=== PATIENT | male | born 1960 | race Caucasian/White ===

== ENCOUNTER 2020-09-09 09:45 | Day surgery (SDC) | payer MEDICARE, SELFPAY ==
--- NOTE | 2020-09-09 | PATH_ITS ---
[facility] Accession Number: [id number] . 01 Material submitted: . PART A: colon - ASCENDING COLON POLYP NEAR CECUM PART B: colon - COLON POLYP @60CM PART C: colon - COLON POLYP @40CM PART D: rectum - RECTAL POLYP X3 . 02 Diagnosis: A. Ascending Colon Polyp Near Cecum: Tubular adenoma. . B. Colon Polyp at 60 cm: Tubular adenoma. . C. Colon Polyp at 40 cm: Portions of hyperplastic polyp x3. . D. Rectal Polyp x3: Portions of hyperplastic polyp x5. [facility] 09/14/2020 1327 Local . 02 Electronically signed: . Jane Carroll MD, Pathologist NPI- [id number] . 01 Gross description: . A. The specimen is received in formalin, labeled ascending colon polyp near cecum, and consists of a 0.7 x 0.6 x 0.2 cm, jacobson-pink polyp. The margin is inked blue. The specimen is bisected and entirely submitted in cassette A1. B. The specimen is received in formalin, labeled colon polyp at 60 cm, and consists of a 0.3 x 0.2 x 0.2 cm, jacobson fragment of soft tissue which is entirely submitted in cassette B1. C. The specimen is received in formalin, labeled colon polyp at 40 cm, and consists of three jacobson-pink fragments of soft tissue measuring 0.8 x 0.7 x 0.3 cm in aggregate. The specimen is entirely submitted in cassette C1. D. The specimen is received in formalin, labeled rectal polyp, and consists of multiple jacobson-pink fragments of soft tissue measuring 1.2 x 1.0 x 0.3 cm in aggregate. The specimen is entirely submitted in cassette D1. ([id number]) /FRR 09/10/2020 1705 [facility] . 02 Pathologist provided ICD-10: K62.5, K64.9, K63.5 . 02 CPT . 275571, 583001, 600314, [id number] Performed at: 01 [facility] [address] [id number] MD Ortiz Beltran MD Phone: [phone] Performed at: 02 [facility] [address] [place] [id number] MD Ashlie Black MD Phone: [phone]
[2020-09-09 10:23] VITALS: BP 148/73; PULSE 84; RESP 16; TEMP 36.6; O2SAT 98; BMI 17.6
[2020-09-09] MEDS: LACTATED RINGERS 1,000 ML 150 ML IV (10:47)
--- NOTE | 2020-09-09 11:23 | PM.PREOP ---
Pre-operative Note COVID-19 COVID-19 status: Negative Result date/Date tested (Pos, Neg/Pending): 09/08/20 Interval Note History & Physical reviewed/Exam performed by Physician: Yes Changes to H&P: No ASA Class (for procedural sedation): II
[2020-09-09] MEDS: MIDAZOLAM 5 MG/5 ML VIAL IV (11:38)
[2020-09-09] MEDS: fentaNYL 250 MCG/5 ML INJ IV (11:38)
--- NOTE | 2020-09-09 12:23 | PM.OP.ENDO ---
Operative Date/Time/Diagnoses Date of procedure: 09/09/20 Time of procedure: 12:23 Pre-op diagnosis: Rectal bleeding. Post-op diagnosis: same (Multiple polyps. Not likely to be the source of bleeding. Internal hemorrhoids which are likely to be the source of bleeding.) Procedure & Clinicians Study performed: Colonoscopy with hot snare polypectomy and cold biopsy. Anoscopy with 3 column hemorrhoidal banding. Same procedure as scheduled: Yes Indications: Patient with rectal bleeding for colonoscopy. Desired banding of hemorrhoids with the source of his problem. Surgeon: Glen Doran Procedure Notes SCOAP/Timeout: Performed Procedure in detail: The patient was placed in the left lateral decubitus position and underwent IV sedation directed by the surgeon consisting of fentanyl and Versed. Digital exam was unremarkable. The scope was inserted and advanced through the rectum into the sigmoid, descending, transverse, and ascending colon. There was a flat lesion in the ascending colon not far from the ileocecal valve which I snared with a hot snared and removed. The cecum was reached identified by the ileocecal valve and the appendiceal opening. The ileocecal valve was briefly cannulated. The terminal ileum was normal in appearance. The scope was gradually brought out. Additional Polyps were found at 60 cm from the anal verge 40 cm from the anal verge and 3 polyps in the rectum. All of these were removed with a hot snare and additional cold biopsies were taken at the edge of 1. All appeared to be completely removed.. The scope ultimately was retroflexed in the rectum. The appearance was remarkable for large hemorrhoids.. The scope was removed and the patient tolerated the procedure well. There was a great deal of liquid stool in the colon but with irrigation and suction I was able to see adequately. Anoscope was inserted and circumferential exam performed. There were 3 large columns of hemorrhoids located in the right anterior right posterior and left lateral positions all of which were banded. Anoscope was removed and patient tolerated the procedure well he was pain-free at completion. Scope withdrawal time: 10 minutes(20 total) Sedation minutes: 44 Findings: internal hemorrhoids and polyp (Multiple) Specimen(s): other (Polyps) Complications: none Post-procedure Recommendations: Colonscopy in 5 years Follow up: as needed Disposition: PACU
[2020-09-09 12:27] VITALS: BP 124/79; PULSE 73; RESP 18; TEMP 36.9; O2SAT 97
[2020-09-09 12:32] VITALS: BP 135/76; PULSE 70; RESP 18; O2SAT 97
[2020-09-09 12:37] VITALS: BP 140/80; PULSE 84; RESP 16; O2SAT 98
[2020-09-09 12:46] VITALS: BP 141/83; PULSE 69; RESP 18; TEMP 37.2; O2SAT 97
== END 2020-09-09 13:00 | disposition home or self-care (01) ==
PROVIDERS: PCP Family Medicine; Referring Provider Specialist; Visit Provider Specialist
PROC: 0DJD8ZZ Inspection of Lower Intestinal Tract, Via Natural or Artificial Opening Endoscopic (ICD-10-PCS; CPT 45378; principal; 2020-09-09 11:15)
DX: K62.5 Hemorrhage of anus and rectum (principal); K64.8 Other hemorrhoids; F32.9 Major depressive disorder, single episode, unspecified; F41.9 Anxiety disorder, unspecified; D12.2 Benign neoplasm of ascending colon; D12.6 Benign neoplasm of colon, unspecified; K62.1 Rectal polyp
CPT/HCPCS: 45385; 45380; 46221; 99152; 99153; J2250; J3010

== ENCOUNTER → 2024-04-15 | Outpatient (CLI) | payer MEDICARE, SELFPAY ==
--- NOTE | 2024-04-15 14:36 | DI.NM.S_ITS ---
PROCEDURE: NM EXERCISE TREADMILL NON NUC COMPARISON: None. INDICATIONS: RADIATING CHEST PAIN,SOB FINDINGS: Rest ECG sinus rhythm 63 bpm. Geovanni protocol 6:00, max heart rate 133 bpm (85% peak predicted), peak BP 176/82, 6.9 METS, GLORIA +23%. Exercise ECG sinus tachycardia, no ST changes or arrhythmia. The patient did not report exercise induced chest discomfort. IMPRESSION: Low risk study. No evidence of exercise induced ischemia or arrhythmia. Normal hemodynamic response. Reduced exercise capacity. Dictated by: Mary Higgins D.O. on 04/15/2024 at 15:54 Approved by: Mary Higgins D.O. on 04/30/2024 at 12:55
== END ==
LOC: NUCM 14:33
PROVIDERS: PCP Family Medicine; Referring Provider Student in an Organized Health Care Education/Training Program; Visit Provider Student in an Organized Health Care Education/Training Program
DX: R07.89 Other chest pain (principal); R06.02 Shortness of breath; F17.200 Nicotine dependence, unspecified, uncomplicated
CPT/HCPCS: 93017

== ENCOUNTER → 2024-05-06 10:44 | Outpatient (CLI) | payer MEDICARE, SELFPAY | PROVIDERS: PCP Family Medicine; Referring Provider Student in an Organized Health Care Education/Training Program; Visit Provider Student in an Organized Health Care Education/Training Program | DX: R07.89 Other chest pain (principal); R06.02 Shortness of breath; J98.8 Other specified respiratory disorders; R94.2 Abnormal results of pulmonary function studies; F17.210 Nicotine dependence, cigarettes, uncomplicated | CPT/HCPCS: 94060; 94726; 94729 ==